=== PATIENT | female | born 1990 | race Caucasian/White ===

== ENCOUNTER 2017-07-17 08:57 | Outpatient (CLI) | payer BC ==
--- NOTE | 2017-07-17 10:43 | MRI ---
MRI RIGHT KNEE WITHOUT CONTRAST: Date: 07/17/17 HISTORY: Fall. COMPARISON: None. FINDINGS: Medial Meniscus: Intact. Posterior medial meniscal capsular separation, incomplete. Lateral Meniscus: Intact. Full thickness rupture of the proximal fibers to anterior cruciate ligament. Posterior cruciate ligam ent is intact. There is a Grade I injury to proximal fibers of the lateral collateral ligament. Media l collateral ligament is intact. The arcuate ligament has a Grade I injury. The popliteal fibular lig ament is intact. Bones: There is pivot shift contusions of lateral femoral condyle and posterolateral tibial plateau, as well as contrecoup contusion of posterior medial tibial plateau. Muscles: There is Grade I injury of the popliteus. There is hemorrhage along the medial head of the gastrocnem ius. Cartilage: Patellofemoral compartment: Intact. Medial compartment: Intact. Lateral compartment: Intact. IMPRESSION: 1. Full thickness ruptured anterior cruciate ligament. 2. Grade I injury proximal fibers of the lateral collateral ligament. 3. Grade I injury of the popliteus tendon. 4. Pivot shift contusions of the lateral femoral condyle posterolateral and submeniscal tibial plate au, as well as contrecoup contusion of the posteromedial submeniscal tibial plateau. 5. Low grade meniscal capsular injury posterior horn medial meniscus. 6. Hemorrhage along the medial head of gastrocnemius muscle. 7. Low grade edema of the fibular head at the level of the proximal tibiofibular joint with some hira ma within the capsule. POS: OFF
== END 2017-07-17 08:58 | disposition home or self-care (01) ==
LOC: MRI 08:57
PROVIDERS: ATTEND Orthopaedic Surgery
DX: M25.561 Pain in right knee (principal); S83.511A Sprain of anterior cruciate ligament of right knee, initial encounter; S83.421A Sprain of lateral collateral ligament of right knee, initial encounter; S86.801A Unspecified injury of other muscle(s) and tendon(s) at lower leg level, right leg, initial encounter; S70.11XA Contusion of right thigh, initial encounter; S83.8X1A Sprain of other specified parts of right knee, initial encounter; R58 Hemorrhage, not elsewhere classified; R60.0 Localized edema